=== PATIENT | female | born 1950 | race Two or more races ===

== ENCOUNTER → 2024-09-19 | Outpatient (BNVA) | payer OTHER, MEDICAID, SELFPAY | END | disposition home or self-care (01) | PROVIDERS: PCP Physician Assistant; Referring Provider Physician Assistant; Visit Provider Urology | DX: K04.2 Pulp degeneration (principal); E66.01 Morbid (severe) obesity due to excess calories; M51.369 Other intervertebral disc degeneration, lumbar region without mention of lumbar back pain or lower extremity pain; I10 Essential (primary) hypertension; E11.9 Type 2 diabetes mellitus without complications; J30.9 Allergic rhinitis, unspecified; K21.9 Gastro-esophageal reflux disease without esophagitis; E78.5 Hyperlipidemia, unspecified | CPT/HCPCS: 81003; 99212; G0463 ==

== ENCOUNTER → 2025-01-31 | Outpatient (CLI) | payer MEDICARE, MEDICAID, SELFPAY ==
[2025-01-31 10:08] LABS: Glucose Estimated Average 151 mg/dL (80-131); Hemoglobin A1C 6.9 % Hgb (4.8-6.0)
[2025-01-31 10:33] LABS: Alanine Aminotransferase 15 U/L (10-49); Albumin, Serum 4.1 gm/dL (3.4-4.8); Albumin/Globulin Ratio 1.6 (1.2-2.2); Alkaline Phosphatase 89 U/L (46-116); Anion Gap 9 (7-16); Aspartate Amino Transferase 15 U/L (0-34); BUN/Creatinine Ratio 19 Ratio (12-20); Bilirubin,Total 0.5 mg/dL (0.3-1.2); Blood Urea Nitrogen 15 mg/dL (9-23); Calcium 9.6 mg/dL (8.3-10.6); Calcium (Corrected) 9.6 mg/dL (8.5-10.1); Carbon Dioxide 27.2 mMol/L (20.0-31.0); Cardiac Risk Estimate 2.9 RATIO (3.7-5.6); Chloride 105 mMol/L (98-107); Cholesterol 138 mg/dL (132-200); Creatinine (Component) 0.8 mg/dL (0.6-1.3); Globulin 2.5 gm/dL (2.3-3.5); Glucose 122 mg/dL (74-106); HDL Cholesterol 48 mg/dL (40-60); LDL Cholesterol,Calculated 76 mg/dL (0-130); Osmolality,Calculated 283 (275-295); Potassium 4.2 mMol/L (3.4-5.1); Sodium 141 mMol/L (136-145); Total Protein 6.6 gm/dL (5.7-8.2); Triglycerides 72 mg/dL (30-150); eGFR > 60 See Note
== END | disposition home or self-care (01) ==
PROVIDERS: PCP Family Medicine; Referring Provider Physician Assistant; Visit Provider Physician Assistant
DX: E11.9 Type 2 diabetes mellitus without complications (principal); E78.5 Hyperlipidemia, unspecified; I10 Essential (primary) hypertension
CPT/HCPCS: 36415; 80053; 80061; 83036

== ENCOUNTER → 2025-03-05 | Outpatient (CLI) | payer MEDICARE, MEDICAID, SELFPAY ==
--- NOTE | 2025-03-05 09:15 | XR_ITS ---
Examination: Screening digital mammography, bilateral Computer aided detection 3-D breast Tomosynthesis, bilateral Date and time of exam: March 05, 2025 0910 hrs. Compared to mammograms dating to July 30, 2020 Indication: Screening Technique: Nonmagnified MLO, CC views of the breasts to been obtained, reconstructed from 3-D Tomosynthesis images. R2 computer aided detection program utilized for evaluation of suspicious masses and/or abnormal calcifications. 3-D Tomosynthesis images obtained. Findings: Scattered areas of fibroglandular density Benign calcifications No interval suspicious masses Stable nodule with breast biopsy marker retroareolar region right breast Impression: BI-RADS category II: Benign Findings. Recommend 1 year follow-up mammogram.
== END | disposition home or self-care (01) ==
LOC: CDIM 09:03
PROVIDERS: PCP Physician Assistant; Referring Provider Physician Assistant; Visit Provider Physician Assistant
DX: Z12.31 Encounter for screening mammogram for malignant neoplasm of breast (principal); R92.323 Mammographic fibroglandular density, bilateral breasts; R92.1 Mammographic calcification found on diagnostic imaging of breast
CPT/HCPCS: 77063; 77067

== ENCOUNTER → 2025-03-06 | Outpatient (CLI) | payer MEDICARE, MEDICAID, SELFPAY ==
[2025-03-06 10:28] LABS: Collection Type, Urine Clean Catch
[2025-03-06 11:27] LABS: Basophils % (Auto) 1 % (0-2.5); Eosinophils # (Auto) 0.2 Thou/mm3 (0.0-0.5); Eosinophils % (Auto) 2 % (0-10); Hematocrit 40.2 % (36.0-46.0); Hemoglobin 13.2 g/dL (12.0-16.0); Immature Granulocytes % (Auto) 0 % (0-0); Immature Granulocytes Auto 0.02 Thou/mm3 (0.00-0.00); Lymphocytes # (Auto) 2.9 Thou/mm3 (1.0-4.8); Lymphocytes % (Auto) 34 % (10-50); Mean Corpuscular HGB Conc 32.8 g/dl (31.0-37.0); Mean Corpuscular Hemoglobin 29.1 pg (25.0-35.0); Mean Corpuscular Volume 89 fL (80-100); Monocytes # (Auto) 0.4 Thou/mm3 (0.0-0.8); Monocytes % (Auto) 5 % (0-12); Neutrophils # (Auto) 4.9 Thou/mm3 (1.8-7.7); Neutrophils % (Auto) 58 % (37-80); Nucleated Red Blood Cell % 0 /100 WBC (0); Platelet Count 238 Thou/mm3 (140-440); Red Blood Count 4.54 Miln/mm3 (4.00-5.20); White Blood Count 8.4 Thou/mm3 (3.6-11.0)
[2025-03-06 11:45] LABS: Glucose Estimated Average 154 mg/dL (80-131)
[2025-03-06 11:49] LABS: Vitamin B12 1319 pg/mL (211-911); Vitamin D 25 Hydroxy Total 63.4 ng/mL (7.3-40.2)
[2025-03-06 11:53] LABS: Bilirubin,Urine Negative (Negative); Blood,Urine Negative (Negative); Clarity,Urine Clear (Clear/Hazy); Color,Urine Yellow (Lt Yel-Yel); Glucose, Urine Negative (Negative); Ketones,Urine Negative (Negative); Leukocyte Esterase,Urine Positive (Negative); Nitrite,Urine Negative (Negative); Protein,Urine Negative (Neg - Trace); RBC,Urine 5 /hpf (0-3); Specific Gravity,Urine 1.026 (1.001-1.035); Squamous Epithelial Cell,Urine 4 /hpf (0-5); Urobilinogen,Urine Negative mg/dL (0.0-1.0); WBC,Urine 16 /hpf (0-5)
[2025-03-06 12:07] LABS: Alanine Aminotransferase 12 U/L (10-49); Albumin, Serum 4.1 gm/dL (3.4-4.8); Albumin/Globulin Ratio 1.5 (1.2-2.2); Alkaline Phosphatase 80 U/L (46-116); Anion Gap 7 (7-16); Aspartate Amino Transferase 16 U/L (0-34); BUN/Creatinine Ratio 28 Ratio (12-20); Bilirubin,Total 0.6 mg/dL (0.3-1.2); Blood Urea Nitrogen 22 mg/dL (9-23); Calcium 9.4 mg/dL (8.3-10.6); Calcium (Corrected) 9.4 mg/dL (8.5-10.1); Cardiac Risk Estimate 2.4 RATIO (3.7-5.6); Chloride 109 mMol/L (98-107); Cholesterol 122 mg/dL (132-200); Creatinine (Component) 0.8 mg/dL (0.6-1.3); Globulin 2.7 gm/dL (2.3-3.5); Glucose 126 mg/dL (74-106); HDL Cholesterol 50 mg/dL (40-60); LDL Cholesterol,Calculated 61 mg/dL (0-130); Osmolality,Calculated 290 (275-295); Potassium 4.2 mMol/L (3.4-5.1); Sodium 143 mMol/L (136-145); Thyroid Stimulating Hormone 0.85 uIU/mL (0.55-4.78); Total Protein 6.8 gm/dL (5.7-8.2); Triglycerides 57 mg/dL (30-150); eGFR > 60 See Note
[2025-03-06 12:10] LABS: Culture Indicated,Urine Yes
[2025-03-06 12:18] LABS: Creatinine MALB Rnd Ur 141 mg/dL (30-125); Microalbumin Creat Ratio 6 mg/gCrea (<30); Microalbumin, Random Urine 8 mg/L (0-300)
== END | disposition home or self-care (01) ==
PROVIDERS: PCP Family Medicine; Referring Provider Physician Assistant; Visit Provider Physician Assistant
DX: Z00.00 Encounter for general adult medical examination without abnormal findings (principal); I10 Essential (primary) hypertension; E11.9 Type 2 diabetes mellitus without complications; E78.5 Hyperlipidemia, unspecified; E55.9 Vitamin D deficiency, unspecified
CPT/HCPCS: 36415; 80053; 80061; 81001; 82043; 82306; 82570; 82607; 83036; 84443; 85025; 87086

== ENCOUNTER 2025-05-09 12:59 | Emergency (ER) | payer MEDICARE, MEDICAID, SELFPAY ==
[2025-05-09 13:19] VITALS: BP 172/81; PULSE 60; RESP 18; TEMP 36.7; O2SAT 95; BMI 50.5
--- NOTE | 2025-05-09 13:23 | XR_ITS ---
Examination: Hand, right 3 views Technique: Hand AP, oblique, lateral 3 views Date and time of exam: May 09, 2025 1327 hours INDICATIONS: Sudden onset third digit right hand pain beginning 2 weeks ago. FINDINGS: Mild osteopenia. Mild osteoarthritis radiocarpal and first carpometacarpal joint as well as distal interphalangeal joints second through fifth digits and interphalangeal joint first digit No fracture No cortical bone destruction IMPRESSION: Osteoarthritis as above
--- NOTE | 2025-05-09 13:30 | EDNOTE_ITS ---
ED Skin Abcess FB-RME/HPI General Chief complaint: Skin/Abscess/Foreign Body Stated complaint: Right middle finger abscess X 2 weeks Time Seen by Provider: 05/09/25 13:23 Source: patient Arrival date/time: 05/09/25 12:59 Mode of arrival: ambulatory Limitations: no limitations RME / HPI RME / HPI narrative: 74-year-old female presents to the ED with a complaint of abscess to the third finger of the right hand x 2 weeks. MD complaint: abscess/boil Onset (ago): week(s) Location: R hand (Digit number 3) Severity: moderate Related Data Home Medications ?Medication ?Instructions ?Recorded ?Confirmed levocetirizine 5 mg tablet (Xyzal) 5 mg PO HS #0 tabs 01/12/16 09/19/24 montelukast 10 mg tablet 10 mg PO HS #0 tabs 08/18/17 09/19/24 (Singulair) famotidine 20 mg tablet (Pepcid) 20 mg PO BID #0 tabs 09/24/17 09/19/24 lovastatin 20 mg tablet 1 tab PO QDAY 07/30/2209/19 losartan 100 mg tablet 100 mg PO QDAY 02/03/2404/07 metformin 1,000 mg tablet 1,000 mg PO BID 02/03/2404/07 Previous Rx's ?Medication ?Instructions ?Recorded ibuprofen 800 mg tablet 800 mg PO TID PRN pain #30 t abs 11/25/23 Allergies Allergy/AdvReac Type Severity Reaction Status Date / Time codeine Allergy Severe FAINTS, Verified 05/09/25 13:04 NAUSA Latex, Natural Rubber Allergy Mild Rash Verified 05/09/25 13:04 tramadol Allergy Mild DIZZINESS, Verified 05/09/25 13:04 INSOMNIA naproxen Allergy Nausea Verified 05/09/25 13:04 Review of Systems Constitutional Constitutional: Reports system reviewed and no additional complaints, except as documented Eyes Eyes: Reports system reviewed and no additional complaints, except as documented, Denies dry eyes, Denies exophthalmos and Reports floaters Cardiovascular Cardiovascular: Denies chest pain with activity and Denies claudication ED Exam Narrative Physical exam: Digit #3 of the right hand positive for an abscess-like process that is just under the fingernail. It is surrounded by mild erythema. Neurovascular is intact and patient continues to have full range of motion of the digit number 3 of the right hand General Limitations: Present no limitations General appearance: Present alert and in no apparent distress Head Head exam: Present atraumatic Eye Eye exam: Present normal appearance, PERRL and EOMI ENT ENT exam: Present normal exam, normal oropharynx and mucous membranes moist Neck Neck exam: Present normal inspection, full ROM and trachea midline Chest Chest inspection: Present normal inspection and symmetric chest wall rise Abdominal Exam Abdominal exam: Present soft and normal bowel sounds Extremities Exam Extremities exam: Present normal inspection and full ROM Back Exam Back exam: Present normal inspection and full ROM Neurological Exam Neurological exam: Present alert and oriented X3 Psychiatric Psychiatric exam: Present normal affect and normal mood Skin Skin exam: Present warm, dry, intact, normal color and other (As described above) Course Course Course Narrative: Will have an x-ray of the digit #3 of the right hand, she will also have a gram of Rocephin and her finger will be dressed. Quality Measures none Orders Category Date Time Status Dress wound [Wound Care] NOW Care 05/09/25 14:55 Active XR hand comp RT min 3V Stat Exams 05/09/25 13:23 Completed cefTRIAXone [Rocephin] 1,000 mg Med 05/09/25 14:54 Discontinued Lidocaine 1% 20 ml [Xylocaine 1% 20 ML] 2.1 ml IM X1 To be done Vital Signs Vital signs: Vital Signs Temperature 98.1 F 05/09/25 13:19 Pulse Rate 60 05/09/25 13:19 Respiratory Rate 18 05/09/25 13:19 Blood Pressure 172/81 H 05/09/25 13:19 Pulse Oximetry (%) 95 05/09/25 13:19 Oxygen Delivery Method Room Air 05/09/25 13:19 Pulse ox room air is 95% Skin / Abscess / Foreign Body MDM Narrative MDM Narrative:: Patient will have a gram of Rocephin after her right hand x-ray, the finger will be cleaned up in a triple ointment dressing will be applied. Patient is to continue with the topical antibiotics and she is to finish off the cephalexin that her primary care physician gave her. I explained to the patient that this quite possibly could be a virus. She will be discharged in no apparent distress. Patient data External records reviewed:: Other (specify) (NA) Clinical information provided by:: patient Social determinants that could affect healthcare access:: none (NA) Patient has the following chronic illnesses:: Diabetis, thyroid How is presenting disease/condition affected by chronic disease/condition?: no chronic disease (Patient has type 2 diabetes) Evaluation data The following diagnostics were reviewed and interpreted by me:: radiology exam(s) Lab and/or radiology exams considered but not ordered:: NEG FOR OSTEO Interpretation Summary: N/A Medications / Prescriptions Medications or Prescriptions considered but not ordered:: NA Medication administrations:: Medication Administration History Discontinued Medications Ceftriaxone Sodium 1,000 mg/ (Lidocaine HCl 2.1 ml) 0 mg IM X1 ONE Stop: 05/09/25 14:55 N/A Consultations Consultation(s) initiated? (list below): No Diagnosis Skin/Abscess Differential Diagnosis: abscess of skin or subcutaneous tissue, dermatophytosis, urticaria and herpes zoster Most likely diagnosis given after review of the tests above:: N/A Admission Indicated Admission indicated?: not indicated Admission Request Was there a request for admission?: No Disposition Plan Disposition Plan: Discharge Discharge Attestation Discharge Attestation: The patient and all family members were given an opportunity to ask questions and understood the discharge instructions. Discharge instructions specifically effects, indications for sooner follow up or return to the emergency department, and the expected course of current diagnosis. Patient condition: Stable Discharge Plan Plan Patient Disposition: HOME (Self Care) Discharge Disposition comment: Patient discharged in no apparent distress Patient condition on transfer: Stable Prescriptions/Referrals Prescriptions/Med Rec: No Action losartan 100 mg tablet 100 mg PO QDAY metformin 1,000 mg tablet 1,000 mg PO BID levocetirizine [Xyzal] 5 MG tablet 5 mg PO HS Qty: 0 montelukast [Singulair] 10 MG tablet 10 mg PO HS Qty: 0 famotidine [Pepcid] 20 MG tablet 20 mg PO BID Qty: 0 Patient Comments: TO SUPPRESS GASTRIC ACID SECRETION lovastatin 20 mg tablet 1 tab PO QDAY ibuprofen 800 mg tablet 800 mg PO TID PRN (Reason: pain) Qty: 30 0RF Referrals: Lucina Skaggs PA-C [Primary Care Provider] - In 1 week Problem List Clinical Impression: Cellulitis, Herpetic bisi Patient/Caregiver Discharge Instructions Discharge Activity: activity as tolerated Education Materials: Diagnosing Herpes, ED Cellulitis Print Language: Djiboutian Stand Alone Forms: Diana Award Info., Patient Portal Info Letter PA/COLLEGE OR [employer]IV[employer]ITY [employer]ACULT[employer] MEMBER Supervising Physician PA/COLLEGE OR [employer]IV[employer]ITY [employer]ACULT[employer] MEMBER Supervising Physician: Jay Jay
[2025-05-09] MEDS: cefTRIAXone 1,000 MG, LIDOCAINE 1% 20 ML 2.1 ML IM (15:26)
== END 2025-05-09 15:38 | disposition home or self-care (01) ==
PROVIDERS: Emergency Provider Emergency Medicine; PCP Physician Assistant
DX: B00.89 Other herpesviral infection (principal)
CPT/HCPCS: 73130; 96372; 99283; J0696; J3490

== ENCOUNTER → 2025-05-14 | Outpatient (CLI) | payer MEDICARE, MEDICAID, SELFPAY | END | disposition home or self-care (01) | LOC: SLDO 14:25 | PROVIDERS: PCP Physician Assistant; Referring Provider Physician Assistant; Visit Provider Physician Assistant | DX: L03.011 Cellulitis of right finger (principal) | CPT/HCPCS: 87070; 87077; 87186; 87205 ==

== ENCOUNTER → 2025-07-11 | Outpatient (CLI) | payer MEDICARE, MEDICAID, SELFPAY ==
[2025-07-11 11:23] LABS: Collection Type, Urine Clean Catch
[2025-07-11 11:47] LABS: Bilirubin,Urine Negative (Negative); Blood,Urine Negative (Negative); Clarity,Urine Clear (Clear/Hazy); Color,Urine Yellow (Lt Yel-Yel); Glucose, Urine Negative (Negative); Ketones,Urine Negative (Negative); Leukocyte Esterase,Urine Positive (Negative); Nitrite,Urine Negative (Negative); PH,Urine 6.0 (5.0-7.0); Protein,Urine Trace (Neg - Trace); RBC,Urine 7 /hpf (0-3); Specific Gravity,Urine 1.028 (1.001-1.035); Squamous Epithelial Cell,Urine 5 /hpf (0-5); Urobilinogen,Urine Negative mg/dL (0.0-1.0); WBC,Urine 22 /hpf (0-5)
[2025-07-11 11:53] LABS: Culture Indicated,Urine Yes
[2025-07-11 11:54] LABS: Glucose Estimated Average 154 mg/dL (80-131); Hemoglobin A1C 7.0 % Hgb (4.8-6.0)
[2025-07-11 12:02] LABS: Alanine Aminotransferase 13 U/L (10-49); Albumin, Serum 4.0 gm/dL (3.4-4.8); Albumin/Globulin Ratio 1.9 (1.2-2.2); Alkaline Phosphatase 79 U/L (46-116); Anion Gap 11 (7-16); Aspartate Amino Transferase 18 U/L (0-34); BUN/Creatinine Ratio 29 Ratio (12-20); Bilirubin,Total 0.5 mg/dL (0.3-1.2); Blood Urea Nitrogen 20 mg/dL (9-23); Calcium 9.7 mg/dL (8.3-10.6); Calcium (Corrected) 9.7 mg/dL (8.5-10.1); Carbon Dioxide 26.3 mMol/L (20.0-31.0); Cardiac Risk Estimate 2.3 RATIO (3.7-5.6); Chloride 107 mMol/L (98-107); Cholesterol 115 mg/dL (132-200); Creatinine (Component) 0.7 mg/dL (0.6-1.3); Globulin 2.1 gm/dL (2.3-3.5); Glucose 131 mg/dL (74-106); HDL Cholesterol 49 mg/dL (40-60); LDL Cholesterol,Calculated 47 mg/dL (0-130); Osmolality,Calculated 291 (275-295); Potassium 4.0 mMol/L (3.4-5.1); Sodium 144 mMol/L (136-145); Total Protein 6.1 gm/dL (5.7-8.2); Triglycerides 94 mg/dL (30-150); eGFR > 60 See Note
== END | disposition home or self-care (01) ==
LOC: COPL 10:36
PROVIDERS: PCP Family Medicine; Referring Provider Physician Assistant; Visit Provider Physician Assistant
DX: E11.9 Type 2 diabetes mellitus without complications (principal); E78.5 Hyperlipidemia, unspecified; I10 Essential (primary) hypertension; R31.9 Hematuria, unspecified
CPT/HCPCS: 36415; 80053; 80061; 81001; 83036; 87086

== ENCOUNTER → 2025-07-12 | Outpatient (CLI) | payer MEDICARE, MEDICAID, SELFPAY ==
--- NOTE | 2025-07-12 16:47 | XR_ITS ---
Examination: Foot, left, 3 views Technique: AP, oblique, lateral views foot, 3 views Date and time of exam: July 07, 2025, 1655 hours INDICATIONS: Onset left foot swelling and pain beginning 2 weeks ago. FINDINGS: Absent middle phalanx fifth digit, clinical correlation advised Moderate osteoarthritis first metatarsophalangeal joint 18 mm plantar bony calcaneal spur Ossification in the plantar fascia 11 mm posterior bony calcaneal spur Pes cavus Moderate osteoarthritis talonavicular, navicular cuneiform joints IMPRESSION: Osteoarthritis as above 18 mm plantar bony calcaneal spur Ossification in the plantar fascia Pes cavus
== END | disposition home or self-care (01) ==
LOC: CDIM 16:36
PROVIDERS: PCP Physician Assistant; Referring Provider Physician Assistant; Visit Provider Physician Assistant
DX: M19.072 Primary osteoarthritis, left ankle and foot (principal); M77.32 Calcaneal spur, left foot; Q66.72 Congenital pes cavus, left foot
CPT/HCPCS: 73630

== ENCOUNTER → 2025-07-17 | Outpatient (BNVA) | payer MEDICARE, MEDICAID, SELFPAY | END | disposition home or self-care (01) | PROVIDERS: PCP Physician Assistant; Referring Provider Physician Assistant; Visit Provider Physician Assistant | DX: Z09 Encounter for follow-up examination after completed treatment for conditions other than malignant neoplasm (principal) | CPT/HCPCS: 99212; 99213; Q3014; G0463 ==

== ENCOUNTER 2025-07-21 07:09 | Emergency (ER) | payer MEDICAID, SELFPAY ==
[2025-07-21 07:10] VITALS: BMI 39.8
[2025-07-21 07:28] VITALS: BP 193/78; BP 203/91; PULSE 60; RESP 19; TEMP 36.5; O2SAT 96
--- NOTE | 2025-07-21 07:56 | XR_ITS ---
Examination: PA lateral chest 2 views Technique: Upright PA lateral chest 2 views Date and time: July 21 thousand 25, 0815 hrs., Comparison April 03, 2022 Indications: Chest pain 3 days. Findings: Mild prominence left ventricle. No pneumonia or pulmonary edema. The osseous structures are intact Impression: No pneumonia or pulmonary edema
--- NOTE | 2025-07-21 08:03 | EDNOTE_ITS ---
ED Back Injury Pain RME/HPI General Chief Complaint: General Adult/Misc Complain Stated Complaint: C/O THROAT AND RIGHT SIDE CHEST/BACK PAIN x 3 DAYS Time Seen by Provider: 07/21/25 07:17 Arrival date/time: 07/21/25 07:09 This is a 74-year-old female that comes in with complaints of throat pain upper back pain for the past 3 days. Patient denies any chest pain shortness of breath. Patient does come to the emergency room hypertensive. Patient was just started on new medication for blood pressure. She does have a history of diabetes, high blood pressure. Related Data Home Medications ?Medication ?Instructions ?Recorded ?Confirmed levocetirizine 5 mg tablet (Xyzal) 5 mg PO HS #0 tabs 01/12/16 07/17/25 montelukast 10 mg tablet 10 mg PO HS #0 tabs 08/18/17 07/17/25 (Singulair) famotidine 20 mg tablet (Pepcid) 20 mg PO BID #0 tabs 09/24/17 07/17/25 lovastatin 20 mg tablet 1 tab PO QDAY 07/30/2207/17 losartan 100 mg tablet 100 mg PO QDAY 02/03/2401/09 metformin 1,000 mg tablet 1,000 mg PO BID 02/03/2401/09 Previous Rx's ?Medication ?Instructions ?Recorded ibuprofen 800 mg tablet 800 mg PO TID PRN pain #30 t abs 11/25/23 acetaminophen 500 mg tablet 1,000 mg (2 x 500 mg) PO Q 6H PRN 07/21/25 pain #30 tabs Allergies Allergy/AdvReac Type Severity Reaction Status Date / Time codeine Allergy Severe FAINTS, Verified 07/21/25 07:12 NAUSA Latex, Natural Rubber Allergy Severe Rash Verified 07/21/25 07:12 naproxen Allergy Severe Nausea Verified 07/21/25 07:12 tramadol Allergy Severe DIZZINESS, Verified 07/21/25 07:12 INSOMNIA Review of Systems Review of Systems Systems Reviewed: All systems reviewed, normal except as documented Past Medical History Past Medical History NEUROLOGIC: Negative Neurological Disorders or Seizures CARDIAC: Positive Cardiac Disorders and Hypertension; Negative Congestive Heart Failure RESPIRATORY: Positive Asthma; Negative Chronic Obstructive Pulmonary Disease (COPD) GASTROINTESTINAL: Positive Gastrointestinal Disorders, Gall Bladder Disease, Ulcer and Obesity GENITOURINARY: Positive Genitourinary Disorders and Kidney Stones; Negative Renal Disease REPRODUCTIVE: Positive Previous Pregnancies MUSCULOSKELETAL: Positive Musculoskeletal Disorders and Arthritis ENDOCRINE: Positive Endocrine Disorders and Diabetes Mellitus Type 2; Negative Diabetes Mellitus Type 1 HEMATOLOGIC: Negative Blood Disorders OTHER HISTORY: Positive Chicken Pox and Measles; Negative Autoimmune Disease, Blood Transfusions, Blood Transfusion Reaction, Anesthesia Reactions or Cancer Family History FAMILY HISTORY: Positive Family Cardiac Disorders, Family Surgery and Family Anesthesia Reaction Surgical History SURGICAL: Positive Joint Replacement, Tubal Ligation and Section Social History SMOKING STATUS: Never smoker ED Exam Narrative Physical exam: VITAL SIGNS: Reviewed. GENERAL APPEARANCE: Alert and interactive, follows commands, no acute distress, HEAD AND FACE: Non-traumatic. ENT: PERRL, conjuctiva pink and clear, eyelid no trauma, Mucous membrane moist. NECK: Supple, nontender, no nuchal rigidity. CHEST: No tenderness, no crepitus, no paradoxical movement, no retractions. LUNGS: Clear, well ventilated, symmetric, no rales, no wheezing, no rhonchi, no stridor, good breath sounds bilaterally. HEART: Regular rate, regular rhythm, no murmur, no gallops. ABDOMEN: Soft, nondistended, no guarding, nontender, no rebound, no masses, NEUROLOGICAL: Gross motor function intact sensory function intact, Appropriate for age. MUSCULOSKELETAL: low back nontender, full range of motion. EXTREMITIES: No redness no swelling no skin breakdown on bilateral foot and leg. Distal neurovascular status intact bilateral foot SKIN: Color pink, dry, no rash, no lacerations, no abrasions, no contusions. Course Quality Measures none Orders Category Date Time Status Bedside COVID-19 Antigen Test NOW Care 07/21/25 07:56 Completed Bedside Influenza A&B Antigen Test NOW Care 07/21/25 07:57 Completed XR chest 2V Stat Exams 07/21/25 07:56 Completed Strep A Rapid Stat Lab 07/21/25 08:15 Completed Urinalysis, C/S if Indicated Stat Lab 07/21/25 08:10 Completed Urine Culture Stat Lab 07/21/25 08:10 Completed Acetaminophen Tab [Tylenol ES Tab] Med 07/21/25 07:57 Discontinued 1,000 mg PO X1 ONE cefTRIAXone [Rocephin] 1,000 mg Med 07/21/25 11:49 Discontinued Lidocaine 1% 20 ml [Xylocaine 1% 20 ML] 2.1 ml IM X1 Vital Signs Vital signs: Vital Signs Temperature 97.7 F 07/21/25 07:28 Pulse Rate 60 07/21/25 07:28 Respiratory Rate 19 07/21/25 07:28 Blood Pressure 203/91 H 07/21/25 07:28 Pulse Oximetry (%) 96 07/21/25 07:28 Oxygen Delivery Method Room Air 07/21/25 07:28 Back Pain / Injury MDM Narrative MDM Narrative:: Patient's blood pressure improved with pain medicine. Patient was given Tylenol by mouth. Patient's urine had some RBCs white blood cells leukocyte esterase positive. Patient's positive for UTI. Patient states she does have some urinary symptoms sometimes not all the time. Will treat for UTI. Patient told to follow-up with primary provider in 1 to 2 days. Provide to the emergency room symptoms change or worsen. COVID and influenza negative Dragon dictation: Although this document has been carefully reviewed, there may still be some phonetic and other typographical errors. These errors are purely grammatical due to imperfections in the software program and should not be construed in any way to compromise the substance of the patient's medical care during this visit. Patient data External records reviewed:: [facility] previous records Clinical information provided by:: patient Social determinants that could affect healthcare access:: none Patient has the following chronic illnesses:: see note How is presenting disease/condition affected by chronic disease/condition?: no chronic disease Evaluation data The following diagnostics were reviewed and interpreted by me:: lab results Lab and/or radiology exams considered but not ordered:: none Interpretation Summary: see note Medications / Prescriptions Medications or Prescriptions considered but not ordered:: none Medication administrations:: Medication Administration History Discontinued Medications Acetaminophen (Acetaminophen 500 Mg Tablet) 1,000 mg PO X1 ONE Stop: 07/21/25 07:58 Last Admin: 07/21/25 08:26 Dose: 1,000 mg Documented By: [facility] Ceftriaxone Sodium 1,000 mg/ (Lidocaine HCl 2.1 ml) 0 mg IM X1 ONE Stop: 07/21/25 11:50 Last Admin: 07/21/25 12:20 Dose: 1,000 mg Documented By: see mar Consultations Consultation(s) initiated? (list below): No Diagnosis Most likely diagnosis given after review of the tests above:: uti Admission Indicated Admission indicated?: not indicated Admission Request Was there a request for admission?: No Disposition Plan Disposition Plan: Discharge Discharge Attestation Discharge Attestation: The patient and all family members were given an opportunity to ask questions and understood the discharge instructions. Discharge instructions specifically effects, indications for sooner follow up or return to the emergency department, and the expected course of current diagnosis. Patient condition: Stable Discharge Plan Plan Patient Disposition: HOME (Self Care) Patient condition on transfer: Stable Prescriptions/Referrals Prescriptions/Med Rec: New acetaminophen 500 mg tablet 1,000 mg PO Q6H PRN (Reason: pain) Qty: 30 0RF No Action losartan 100 mg tablet 100 mg PO QDAY metformin 1,000 mg tablet 1,000 mg PO BID levocetirizine [Xyzal] 5 MG tablet 5 mg PO HS Qty: 0 montelukast [Singulair] 10 MG tablet 10 mg PO HS Qty: 0 famotidine [Pepcid] 20 MG tablet 20 mg PO BID Qty: 0 Patient Comments: TO SUPPRESS GASTRIC ACID SECRETION lovastatin 20 mg tablet 1 tab PO QDAY ibuprofen 800 mg tablet 800 mg PO TID PRN (Reason: pain) Qty: 30 0RF Referrals: Lucina Skaggs PA-C [Primary Care Provider] - In 1 week Problem List Clinical Impression: Acute UTI Patient/Caregiver Discharge Instructions Discharge Activity: activity as tolerated Education Materials: ED CYSTITIS Female Adult Additional Instructions: Lianet un michel con gonzalez medico de cabecera en las proximas 24-48 horas. Regrese a la deejay de emergencias si hay evidencia de que los signos o sintomas empeoran. Print Language: Yi Stand Alone Forms: Diana Award Info., Patient Portal Info Letter PA/STERILE TECH Supervising Physician PA/KUMAR Supervising Physician: gilles
[2025-07-21] MEDS: ACETAMINOPHEN 500 MG TABLET 1000 MG PO (08:26)
[2025-07-21 08:39] LABS: Collection Type, Urine Voided
[2025-07-21 08:51] LABS: Bilirubin,Urine Negative (Negative); Blood,Urine Negative (Negative); Clarity,Urine Turbid (Clear/Hazy); Color,Urine Lt-Yellow (Lt Yel-Yel); Glucose, Urine Negative (Negative); Ketones,Urine Negative (Negative); Leukocyte Esterase,Urine Positive (Negative); Nitrite,Urine Negative (Negative); PH,Urine 5.5 (5.0-7.0); Protein,Urine Negative (Neg - Trace); RBC,Urine 5 /hpf (0-3); Specific Gravity,Urine 1.016 (1.001-1.035); Squamous Epithelial Cell,Urine 6 /hpf (0-5); Urobilinogen,Urine Negative mg/dL (0.0-1.0); WBC,Urine 134 /hpf (0-5)
[2025-07-21 09:12] LABS: Strep A Rapid Negative (Negative)
[2025-07-21 09:21] LABS: Culture Indicated,Urine Yes
[2025-07-21 10:25] VITALS: BP 166/75; PULSE 60; RESP 19; TEMP 36.6; O2SAT 97
[2025-07-21] MEDS: cefTRIAXone 1,000 MG, LIDOCAINE 1% 20 ML 2.1 ML IM (12:20)
== END 2025-07-21 12:38 | disposition home or self-care (01) ==
PROVIDERS: Nurse Practitioner Family; Emergency Provider Emergency Medicine; PCP Physician Assistant
DX: N39.0 Urinary tract infection, site not specified (principal); M54.6 Pain in thoracic spine; I10 Essential (primary) hypertension; E11.9 Type 2 diabetes mellitus without complications; Z79.84 Long term (current) use of oral hypoglycemic drugs
CPT/HCPCS: 71046; 81001; 87086; 87400; 87651; 87811; 96372; 99283; J0696; J3490; A9270

== ENCOUNTER → 2025-09-13 | Outpatient (CLI) | payer MEDICARE, SELFPAY ==
--- NOTE | 2025-09-13 14:38 | XR_ITS ---
Examination: Knee, left, 3 views Technique: Knee AP, lateral, oblique 3 views Date and time of exam: September 13, 2025, 1447 hours Dictation: Left knee pain 1 month FINDINGS: Moderate to advanced tricompartment osteoarthritis, most severe medial joint space No fracture Small knee effusion IMPRESSION: Moderate to advanced tricompartment osteoarthritis
== END | disposition home or self-care (01) ==
PROVIDERS: PCP Physician Assistant; Referring Provider Physician Assistant; Visit Provider Physician Assistant
DX: M17.12 Unilateral primary osteoarthritis, left knee (principal)
CPT/HCPCS: 73562

== ENCOUNTER 2025-09-24 05:13 | Emergency (ER) | payer MEDICARE, MEDICAID, SELFPAY ==
[2025-09-24 05:14] VITALS: BMI 44.4
[2025-09-24 05:29] VITALS: BP 148/80; PULSE 62; RESP 18; TEMP 36.6; O2SAT 97
[2025-09-24] MEDS: MORPHINE SULF INJ 4 MG/ML VIAL 2 MG IM (06:35)
[2025-09-24] MEDS: DEXAMETHASONE SOD PHOS INJ 4 MG/ML VIAL IM (06:36)
[2025-09-24 07:09] VITALS: BP 165/97; PULSE 61; RESP 18; TEMP 36.6; O2SAT 97
--- NOTE | 2025-09-29 19:17 | PD.EDBACK ---
ED Back Injury Pain RME/HPI General Chief Complaint: Back Pain/Injury Stated Complaint: R LOW BACK PAIN Time Seen by Provider: 09/24/25 05:31 Arrival date/time: 09/24/25 05:13 This is a case of 75-year-old female who have a history of chronic back pain and sciatica came in in the emergency room with medication refill for his muscle spasm tizanidine as needed patient states that she is currently have mild lower back pain radiating to the right lateral side of the thigh patient denies any numbness weakness tingling sensation or incontinence to your urine or stool denies any recurrent injury or trauma Limitations: no limitations Related Data Home Medications ?Medication ?Instructions ?Recorded ?Confirmed levocetirizine 5 mg tablet (Xyzal) 5 mg PO HS #0 tabs 01/12/16 07/17/25 montelukast 10 mg tablet 10 mg PO HS #0 tabs 08/18/17 07/17/25 (Singulair) famotidine 20 mg tablet (Pepcid) 20 mg PO BID #0 tabs 09/24/17 07/17/25 lovastatin 20 mg tablet 1 tab PO QDAY 07/30/22 07/17/25 losartan 100 mg tablet 100 mg PO QDAY 02/03/24 07/17/25 metformin 1,000 mg tablet 1,000 mg PO BID 02/03/24 07/17/25 Previous Rx's ?Medication ?Instructions ?Recorded ibuprofen 800 mg tablet 800 mg PO TID PRN pain #30 tabs 11/25/23 acetaminophen 500 mg tablet 1,000 mg (2 x 500 mg) PO Q6H PRN 07/21/25 pain #30 tabs tizanidine 2 mg capsule 2 mg PO Q8H PRN muscle spasticity 09/24/25 #10 caps Allergies Allergy/AdvReac Type Severity Reaction Status Date / Time codeine Allergy Severe FAINTS, Verified 09/24/25 05:22 NAUSA Latex, Natural Rubber Allergy Severe Rash Verified 09/24/25 05:22 naproxen Allergy Severe Nausea Verified 09/24/25 05:22 tramadol Allergy Severe DIZZINESS, Verified 09/24/25 05:22 INSOMNIA Review of Systems Review of Systems Systems Reviewed: All systems reviewed, normal except as documented Constitutional Constitutional: Reports system reviewed and no additional complaints, except as documented and Reports as per HPI Cardiovascular Cardiovascular: Reports system reviewed and no additional complaints, except as documented and Reports as per HPI Respiratory Respiratory: Reports system reviewed and no additional complaints, except as documented and Reports as per HPI Gastrointestinal Gastrointestinal: Reports system reviewed and no additional complaints, except as documented and Reports as per HPI Musculoskeletal Musculoskeletal: Reports system reviewed and no additional complaints, except as documented and Reports as per HPI Neurologic Neurologic: Reports system reviewed and no additional complaints, except as documented and Reports as per HPI Past Medical History Past Medical History NEUROLOGIC: Negative Neurological Disorders or Seizures CARDIAC: Positive Cardiac Disorders and Hypertension; Negative Congestive Heart Failure RESPIRATORY: Positive Asthma; Negative Chronic Obstructive Pulmonary Disease (COPD) GASTROINTESTINAL: Positive Gastrointestinal Disorders, Gall Bladder Disease, Ulcer and Obesity GENITOURINARY: Positive Genitourinary Disorders and Kidney Stones; Negative Renal Disease REPRODUCTIVE: Positive Previous Pregnancies MUSCULOSKELETAL: Positive Musculoskeletal Disorders and Arthritis ENDOCRINE: Positive Endocrine Disorders and Diabetes Mellitus Type 2; Negative Diabetes Mellitus Type 1 HEMATOLOGIC: Negative Blood Disorders OTHER HISTORY: Positive Chicken Pox and Measles; Negative Autoimmune Disease, Blood Transfusions, Blood Transfusion Reaction, Anesthesia Reactions or Cancer Family History FAMILY HISTORY: Positive Family Cardiac Disorders, Family Surgery and Family Anesthesia Reaction Surgical History SURGICAL: Positive Joint Replacement, Tubal Ligation and Section Social History SMOKING STATUS: Never smoker ED Exam General Limitations: Present no limitations General appearance: Present alert, in no apparent distress and other (Patient is awake alert oriented not in distress nontoxic looking well-hydrated well-nourished) Head Head exam: Present atraumatic, normocephalic and normal inspection Eye Eye exam: Present normal appearance, PERRL and EOMI ENT ENT exam: Present normal exam, normal oropharynx and mucous membranes moist Neck Neck exam: Present normal inspection, full ROM and trachea midline; Absent tenderness, meningismus, lymphadenopathy or thyromegaly Chest Chest inspection: Present normal inspection and symmetric chest wall rise; Absent tenderness Respiratory Respiratory exam: Present normal lung sounds bilaterally; Absent respiratory distress, wheezes, stridor, accessory muscle use or prolonged expiratory phase Cardiovascular Cardiovascular exam: Present regular rate, normal rhythm and normal heart sounds; Absent bradycardia, tachycardia, irregular rhythm or diastolic murmur Abdominal Exam Abdominal exam: Present soft and normal bowel sounds; Absent distention, tenderness, guarding, rebound, rigidity, diminished bowel sounds, hyperactive bowel sounds, hypoactive bowel sounds or organomegaly Extremities Exam Extremities exam: Present normal inspection and full ROM Expanded Lower Extremity Exam Hip/Pelvis exam: Present normal inspection, full ROM and other (ROM intact neurovascular exam); Absent tenderness, swelling, abrasion, laceration, ecchymosis, deformity, crepitus, dislocation, erythema, external rotation, internal rotation, shortening or pelvis stable Upper leg exam: Present normal inspection and full ROM; Absent tenderness or swelling Knee exam: Present normal inspection and full ROM; Absent tenderness or swelling Lower leg exam: Present normal inspection, full ROM, Achilles tendon intact and other; Absent tenderness, swelling or Homans' sign Ankle exam: Present normal inspection and full ROM; Absent tenderness or swelling Foot/toe exam: Present normal inspection and full ROM; Absent tenderness or swelling Back Exam Back exam: Present normal inspection, full ROM and tenderness (Mild tenderness L1 L5 no CVA tenderness no paraspinal no paravertebral tenderness ROM intact neurovascular); Absent CVA tenderness (R), CVA tenderness (L), muscle spasm, paraspinal tenderness, vertebral tenderness, rashes, sciatic notch tenderness (R), sciatic notch tenderness (L), straight leg raise (R) or straight leg raise (L) Neurological Exam Neurological exam: Present alert, oriented X3, CN II-XII intact, normal gait and reflexes normal; Absent motor sensory deficit Psychiatric Psychiatric exam: Present normal affect and normal mood Skin Skin exam: Present warm, dry, intact and normal color Course Quality Measures none Orders Category Date Time Status Dexamethasone Inj [Decadron Inj] Med 09/24/25 05:32 Discontinued 4 mg IM X1 ONE Morphine* Inj Med 09/24/25 05:32 Discontinued 2 mg IM X1 ONE Vital Signs Vital signs: Vital Signs Temperature 98 F 09/24/25 05:29 Pulse Rate 62 09/24/25 05:29 Respiratory Rate 18 09/24/25 05:29 Blood Pressure 148/80 H 09/24/25 05:29 Pulse Oximetry (%) 97 09/24/25 05:29 Oxygen Delivery Method Room Air 09/24/25 05:29 Oxygen saturation is 97% on room air Back Pain / Injury MDM Narrative MDM Narrative:: This is a case of 75-year-old female who have a history of chronic back pain and sciatica came in in the emergency room with medication refill for his muscle spasm tizanidine as needed patient states that she is currently have mild lower back pain radiating to the right lateral side of the thigh patient denies any numbness weakness tingling sensation or incontinence to your urine or stool denies any recurrent injury or trauma physical examination patient is awake alert oriented not in distress nontoxic looking well-hydrated well-nourished patient noted to have mild to moderate tenderness on the L1 L5 but no crepitation no deformity no paraspinal no paravertebral tenderness leg raise exam is normal steady gait no CVA tenderness abdominal exam is normal patient right lower extremities were normal no signs and symptoms of cauda equina no DVT patient was given tizanidine as requested for medication refill she will follow-up with neurosurgeon and pain management doctor as instructed follow-up with PCP in 2 days for reevaluation and for any worsening symptoms or any emergent concern return precaution in the ER is advised Patient data External records reviewed:: [facility] previous records Clinical information provided by:: patient Social determinants that could affect healthcare access:: none Patient has the following chronic illnesses:: None How is presenting disease/condition affected by chronic disease/condition?: no chronic disease Evaluation data The following diagnostics were reviewed and interpreted by me:: other (specify) (None) Lab and/or radiology exams considered but not ordered:: None Interpretation Summary: None Medications / Prescriptions Medications or Prescriptions considered but not ordered:: Given Medication administrations:: Medication Administration History Discontinued Medications Dexamethasone Sodium Phosphate (Dexamethasone Sod Phos Inj 4 Mg/Ml Vial) 4 mg IM X1 ONE; Protocol Stop: 09/24/25 05:33 Last Admin: 09/24/25 06:36 Dose: 4 mg Documented By: MARCELLO Morphine Sulfate (Morphine Sulf Inj 4 Mg/Ml Vial) 2 mg IM X1 ONE Stop: 09/24/25 05:33 Last Admin: 09/24/25 06:35 Dose: 2 mg Documented By: MARCELLO Given Consultations Consultation(s) initiated? (list below): No Diagnosis Differential diagnosis back pain/injury: sciatica and other (Osteoarthritis) Most likely diagnosis given after review of the tests above:: Chronic low back pain sciatica Admission Indicated Admission indicated?: not indicated Explain why admission is indicated or not indicated:: Not indicated Admission Request Was there a request for admission?: No Admission Attestation Admission request attestation: Not indicated Disposition Plan Disposition Plan: Discharge Discharge Attestation Discharge Attestation: The patient and all family members were given an opportunity to ask questions and understood the discharge instructions. Discharge instructions specifically effects, indications for sooner follow up or return to the emergency department, and the expected course of current diagnosis. Patient condition: Stable Discharge Plan Plan Patient Disposition: HOME (Self Care) Patient condition on transfer: Stable Prescriptions/Referrals Prescriptions/Med Rec: New tizanidine 2 mg capsule 2 mg PO Q8H PRN (Reason: muscle spasticity) Qty: 10 0RF No Action losartan 100 mg tablet 100 mg PO QDAY metformin 1,000 mg tablet 1,000 mg PO BID levocetirizine [Xyzal] 5 MG tablet 5 mg PO HS Qty: 0 montelukast [Singulair] 10 MG tablet 10 mg PO HS Qty: 0 famotidine [Pepcid] 20 MG tablet 20 mg PO BID Qty: 0 Patient Comments: TO SUPPRESS GASTRIC ACID SECRETION lovastatin 20 mg tablet 1 tab PO QDAY ibuprofen 800 mg tablet 800 mg PO TID PRN (Reason: pain) Qty: 30 0RF acetaminophen 500 mg tablet 1,000 mg PO Q6H PRN (Reason: pain) Qty: 30 0RF Problem List Clinical Impression: Chronic low back pain with right-sided sciatica, Medication refill Patient/Caregiver Discharge Instructions Education Materials: Sciatica, ED Back Spasm, No Trauma Additional Instructions: Follow-up with your primary care physician in 2 days for reevaluation and to be referred to neurosurgeon for further evaluation and treatment of chronic low back pain and sciatica and pain management doctor for pain control worsening symptoms or any emergent concerns such as numbness weakness tingling sensation incontinence to urine or stool call 911 or go to the nearest emergency room take your medication as directed ice pack and warm water rest as needed for pain Print Language: Maori Stand Alone Forms: Diana Award Info., Patient Portal Info Letter PA/FIELD MAP TECHNICIAN Supervising Physician PA/FIELD MAP TECHNICIAN Supervising Physician: Dr. Dillan Dasilva
== END 2025-09-24 07:15 | disposition home or self-care (01) ==
LOC: SERX 06:16
PROVIDERS: Emergency Provider Emergency Medicine; PCP Physician Assistant
DX: M54.41 Lumbago with sciatica, right side (principal)
CPT/HCPCS: 96372; 99282; J1100; J2270

== ENCOUNTER → 2025-10-01 | Outpatient (CLI) | payer MEDICARE, MEDICAID, SELFPAY ==
[2025-10-01 11:42] LABS: Alanine Aminotransferase 22 U/L (10-49); Albumin, Serum 4.7 gm/dL (3.4-4.8); Albumin/Globulin Ratio 2.2 (1.2-2.2); Alkaline Phosphatase 84 U/L (46-116); Anion Gap 11 (7-16); Aspartate Amino Transferase 20 U/L (0-34); BUN/Creatinine Ratio 24 Ratio (12-20); Bilirubin,Total 0.6 mg/dL (0.3-1.2); Blood Urea Nitrogen 19 mg/dL (9-23); Calcium 10.0 mg/dL (8.3-10.6); Calcium (Corrected) 10.0 mg/dL (8.5-10.1); Carbon Dioxide 26.2 mMol/L (20.0-31.0); Cardiac Risk Estimate 2.1 RATIO (3.7-5.6); Chloride 105 mMol/L (98-107); Cholesterol 105 mg/dL (132-200); Creatinine (Component) 0.8 mg/dL (0.6-1.3); Globulin 2.1 gm/dL (2.3-3.5); Glucose 123 mg/dL (74-106); HDL Cholesterol 49 mg/dL (40-60); LDL Cholesterol,Calculated 44 mg/dL (0-130); Osmolality,Calculated 286 (275-295); Potassium 4.4 mMol/L (3.4-5.1); Sodium 142 mMol/L (136-145); Total Protein 6.8 gm/dL (5.7-8.2); Triglycerides 62 mg/dL (30-150); eGFR > 60 See Note
[2025-10-01 11:54] LABS: Glucose Estimated Average 154 mg/dL (80-131); Hemoglobin A1C 7.0 % Hgb (4.8-6.0)
== END | disposition home or self-care (01) ==
LOC: COPL 10:20
PROVIDERS: PCP Family Medicine; Referring Provider Physician Assistant; Visit Provider Physician Assistant
DX: E11.9 Type 2 diabetes mellitus without complications (principal); E78.5 Hyperlipidemia, unspecified; I10 Essential (primary) hypertension
CPT/HCPCS: 36415; 80053; 80061; 83036

== ENCOUNTER → 2025-10-03 | Outpatient (CLI) | payer MEDICARE, MEDICAID, SELFPAY ==
--- NOTE | 2025-10-03 13:48 | XR_ITS ---
Examination: Lumbar spine, 5 views Technique: Lumbar spine AP, lateral, coned lateral lower lumbar spine, bilateral obliques 5 views Exam date and time: October 03, 2025, 1407 hours INDICATIONS: Low back pain beginning 15 days ago. FINDINGS: Lumbar dextroscoliosis 12 degrees Advanced diffuse facet arthropathy Prominent lumbar spondylosis Diffuse moderate to advanced lumbar degenerative disc disease No fracture IMPRESSION: Diffuse moderate to advanced lumbar degenerative disc disease stable compared with December 09, 2023
== END | disposition home or self-care (01) ==
LOC: SDIM 13:30
PROVIDERS: PCP Family Medicine; Referring Provider Physician Assistant; Visit Provider Physician Assistant
DX: M51.360 Other intervertebral disc degeneration, lumbar region with discogenic back pain only (principal)
CPT/HCPCS: 72110